=== PATIENT | male | born 1975 | race Two or more races ===

== ENCOUNTER 2017-04-17 21:35 | Emergency (ER) | payer SELFPAY ==
--- NOTE | 2017-04-18 00:13 | ER Document Report ---
ED General - General TRAVEL OUTSIDE OF THE [place] IN LAST 30 DAYS: No - HPI Associated symptoms: Other - see above. <MARISOL MENESES - Last Filed: 04/18/17 01:51> <GIORGI CHRISTINA - Last Filed: 04/18/17 05:18> - General Chief Complaint: High Blood Pressure Stated Complaint: FEVER/BODY ACHES Time Seen by Provider: 04/17/17 23:45 Notes: Patient is a 41 year old male who presents to the ED with complaints of a painful headache and hypertension while working today. Patient has a history of hypertension and is treated with Lisinopril but states he had stopped taking it for a while and just started back on the medication 5 days ago and has enough until he returns home. Patient is currently in town for work and is only here for the next week and will then return to [place]. Patient also complains of swelling in his bilateral feet. Patient states he experienced blurred vision and dizziness but denies double vision or speech changes. No other concerns or complaints at this time. 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 (MARISOL EMNESES) Past Medical History - General Information source: Patient - Social History Smoking Status: Unknown if Ever Smoked Family History: Reviewed & Not Pertinent Patient has suicidal ideation: No Patient has homicidal ideation: No - Past Medical History Cardiac Medical History: Reports: Hx Hypertension Renal/ Medical History: Denies: Hx Peritoneal Dialysis <MARISOL MENESES - Last Filed: 04/18/17 01:51> Review of Systems - Review of Systems Constitutional: No symptoms reported EENT: See HPI, Blurred vision. denies: Double vision Cardiovascular: See HPI, Dizziness Respiratory: No symptoms reported Gastrointestinal: No symptoms reported Genitourinary: No symptoms reported Male Genitourinary: No symptoms reported Musculoskeletal: See HPI, Other - swelling in bilateral feet Skin: No symptoms reported Hematologic/Lymphatic: No symptoms reported Neurological/Psychological: See HPI, Headaches. denies: Other - speech changes <MARISOL MENESES - Last Filed: 04/18/17 01:51> Physical Exam - General General appearance: Appears well, Alert In distress: None - HEENT Head: Normocephalic Eyes: Normal Extraocular movements intact: Yes Pupils: PERRL Ears: Normal Tympanic membrane: Normal Pharynx: Normal - Respiratory Respiratory status: No respiratory distress Breath sounds: Normal - Cardiovascular Rhythm: Regular Heart sounds: Normal auscultation Murmur: No - Abdominal Inspection: Normal Distension: No distension Tenderness: Nontender - Back Back: Normal - Extremities General upper extremity: Normal inspection, Normal ROM General lower extremity: Normal inspection, Normal ROM. No: Edema - no pitting edema noted in lower extremities - Neurological Neuro grossly intact: Yes Cognition: Normal Orientation: AAOx4 [place] Coma Scale Eye Opening: Spontaneous [place] Coma Scale Verbal: Oriented [place] Coma Scale Motor: Obeys Commands [place] Coma Scale Total: 15 Speech: Normal Motor strength normal: LUE, RUE, LLE, RLE Sensory: Normal - Psychological Associated symptoms: Normal affect, Normal mood - Skin Skin Temperature: Warm Skin Moisture: Dry Skin Color: Normal <MARISOL MENESES - Last Filed: 04/18/17 01:51> Course - Laboratory Result Diagrams: 04/18/17 00:40 04/18/17 00:40 <MARISOL MENESES - Last Filed: 04/18/17 01:51> - Laboratory Result Diagrams: 04/18/17 00:40 04/18/17 00:40 <GIORGI CHRISTINA - Last Filed: 04/18/17 05:18> - Re-evaluation Re-evalutation: 04/18/17 01:32 speaking male patient here for chief complaint of headache was out of his blood pressure medication for several days and recently restarted his up here for 1 week from [place]. Gradual onset not the worst headache of his life not associated with strokelike symptoms inability to speak weakness on one side of body versus the other syncope or near syncope no known history of aneurysm. No chest pain shortness breath nausea vomiting or neurological deficits. On exam nation he is awake alert and oriented GCS of 1515 blood pressure is slightly elevated no neurological symptoms chest pain or physical findings on examination normal neurological exam CT of the head is negative headache treated with Toradol Benadryl and Reglan resolved . Patient has plenty of blood pressure medication to get him through until he follows up with his primary care doctor next week discussed reasons for ED return sooner 04/18/17 01:33 (GIORGI CHRISTINA) - Vital Signs Vital signs: Temp Pulse Resp BP Pulse Ox 98.2 F 69 18 144/100 H 98 04/17/17 21:41 04/18/17 02:06 04/18/17 02:06 04/18/17 02:06 04/18/17 02:06 Discharge <MARISOL MENESES - Last Filed: 04/18/17 01:51> <GIORGI CHRISTINA - Last Filed: 04/18/17 05:18> - Discharge Clinical Impression: CEPHALGIA Condition: Stable Disposition: HOME, SELF-CARE Additional Instructions: Headache The physician does not feel that the headache you are experiencing has a serious underlying cause. Most headaches are due to emotional stress, with resultant muscle tension (tension headache). Occasionally, headaches are secondary to changes in the blood vessels of the scalp (vascular headache and migraine headache). Sometimes, a headache is the first symptom of another developing illness, such as a viral infection. You have no evidence of stroke, bleeding, meningitis, or other serious cause of your headache. The treatment of headaches varies with the severity and cause of the pain. Not all headaches need pain shots. In fact, there is evidence that using narcotics for headaches may make them worse in the long run. The physician will determine the therapy that's in your best interest. If you develop a fever, if the headache is different from any you've previously experienced, or if the headache progressively worsens, then call your physician at once or go to the emergency room. Forms: Elevated Blood Pressure Print Language: Sami Tha Attestation: 04/18/17 01:31 I personally performed the services described in the documentation, reviewed and edited the documentation which was dictated to my scribe in my presence, and it accurately records my words and actions. (GIORGI CHRISTINA) Delisaibe Documentation - Scribe Written by Tha:: tha De, 04/18/2017, [id number] acting as scribe for :: Avery <MARISOL MENESES - Last Filed: 04/18/17 01:51>
[2017-04-18] MEDS ORDERED: DIPHENHYDRAMINE HCL 50 MG/ML VIAL IM ONE (00:18)
[2017-04-18] MEDS ORDERED: KETOROLAC TROMETHAMINE 60 MG/2 ML SDV IM ONE (00:18)
[2017-04-18] MEDS ORDERED: METOCLOPRAMIDE HCL INJ/PF 10 MG/2 ML SDV IM ONE (00:18)
[2017-04-18 00:46] LABS: ABSOLUTE BASOPHILS # (AUTO) 0.1 10^3/uL (0.0-0.2); ABSOLUTE EOSINOPHILS # (AUTO) 0.1 10^3/uL (0.0-0.6); ABSOLUTE LYMPHOCYTES (AUTO) 2.8 10^3/uL (0.5-4.7); ABSOLUTE MONOCYTES (AUTO) 1.2 10^3/uL (0.1-1.4); ABSOLUTE NEUT (AUTO) 5.1 10^3/uL (1.7-8.2); EOSINOPHILS % (AUTO) 1.2 % (0-6); HEMATOCRIT 41.9 % (37.9-51.0); HGB HCT DIFFERENCE 0.1; MEAN CORPUSCULAR HEMOGLOBIN 28.5 pg (27.0-33.4); MEAN CORPUSCULAR HGB CONC 33.4 g/dL (32.0-36.0); MEAN CORPUSCULAR VOLUME 85 fl (80-97); MONOCYTES % (AUTO) 12.7 % (3-13); RED BLOOD COUNT 4.91 10^6/uL (4.35-5.55); RED CELL DISTRIBUTION WIDTH 13.7 % (11.5-14.0); SEGMENTED NEUTROPHILS % (AUTO) 55.1 % (42-78); WHITE BLOOD COUNT 9.2 10^3/uL (4.0-10.5)
[2017-04-18 01:04] LABS: ALANINE AMINOTRANSFERASE 41 U/L (21-72); ALBUMIN 3.8 g/dL (3.5-5.0); ALKALINE PHOSPHATASE 97 U/L (38-126); ANION GAP 10 (5-19); ASPARTATE AMINO TRANSFERASE 27 U/L (17-59); BILIRUBIN,DIRECT 0.2 mg/dL (0.0-0.4); BILIRUBIN,TOTAL 0.3 mg/dL (0.2-1.3); BLOOD UREA NITROGEN 17 mg/dL (7-20); CARBON DIOXIDE 28 mmol/L (22-30); CHLORIDE 101 mmol/L (98-107); CREATININE RESULT 0.95 mg/dL (0.52-1.25); GLUCOSE 90 mg/dL (75-110); POTASSIUM 3.8 mmol/L (3.6-5.0); SODIUM 139.4 mmol/L (137-145); TOTAL PROTEIN 7.1 g/dL (6.3-8.2)
--- NOTE | 2017-04-18 01:06 | RADIOLOGY REPORT (SQ) ---
EXAM DESCRIPTION: CT HEAD WITHOUT COMPLETED DATE/TIME: 04/18/2017 12:55 am REASON FOR STUDY: headache COMPARISON: None. TECHNIQUE: Axial images acquired through the brain without intravenous contrast. Images reviewed wi th bone, brain and subdural windows. Images stored on PACS. All CT scanners at this facility use dose modulation, iterative reconstruction, and/or weight based d osing when appropriate to reduce radiation dose to as low as reasonably achievable (ALARA). [facility]: Dose Right [facility]: CareDose [facility]: Dose Right [facility]: Teradose 4D [facility]: Smart [employer] RADIATION DOSE: Up-to-date CT equipment and radiation dose reduction techniques were employed. CTDIv ol: 64.6 mGy. DLP: 1163 mGy-cm. mGy. LIMITATIONS: None. FINDINGS: VENTRICLES: Normal size and contour. CEREBRUM: No mass effect. No hemorrhage. No midline shift. Normal wheeler/white matter differentiatio n. No evidence for acute territorial infarction. CEREBELLUM: No mass effect. No hemorrhage. No alteration of density. No evidence for acute infarct ion. EXTRAAXIAL SPACES: No fluid collections. ORBITS AND GLOBE: Symmetrical contour of the globes. CALVARIUM: No depressed skull fracture. PARANASAL SINUSES: No air-fluid level. Mucous retention cyst/polyp in the left maxillary sinus. SOFT TISSUES: No hematoma. IMPRESSION: No acute intracranial hemorrhage or acute territorial infarct. TECHNICAL DOCUMENTATION: JOB ID: [id number] [facility] Quality ID # [id number]: Final reports with documentation of one or more dose reduction techniques (e.g., Au tomated exposure control, adjustment of the mA and/or kV according to patient size, use of iterative reconstruction technique) 2010 [employer]- All Rights Reserved
[2017-04-18 02:07] VITALS: BP 144/100
== END 2017-04-18 02:00 | disposition home or self-care (01) ==
LOC: ER 21:35
DX: R51 Headache (principal); I10 Essential (primary) hypertension; Z79.899 Other long term (current) drug therapy; R42 Dizziness and giddiness; H53.8 Other visual disturbances; M79.89 Other specified soft tissue disorders
CPT/HCPCS: 99284; 96372; 96374; 36415; 85025; 80076; 80048; 70450; J1200; J1885; J2765